=== PATIENT | female | born 1930 | race Caucasian/White ===

== ENCOUNTER → 2016-05-22 | Outpatient (CLI) | payer OTHER, BC ==
[~2016-05-22] MED LIST: ASPI81TA28 PO; CALC-20 PO; CIPR-255 PO; CYAN3INJ IM; DILT-113 PO; LEVO50TA6 PO; LPT40 PO; MAGN400T6 PO; MULT-190 PO; PRLSR20 PO; PYRI100T4 PO; SPIR25TA PO; VENL1CAP92 PO; VENL75CA PO
[2016-05-22 10:04] LABS: ALKALINE PHOSPHATASE 122 U/L (45-117); ALT/SGPT 28 U/L (12-78); AST/SGOT 18 U/L (15-37); BLOOD UREA NITROGEN 19 mg/dl (7-18); BUN/CREATININE RATIO 18.9 (10-20); CALCIUM 9.5 mg/dl (8.5-10.1); CARBON DIOXIDE 28 mmol/L (21-32); CHLORIDE 108 mmol/L (98-107); CHOLESTEROL 118 mg/dl (0-200); GLUCOSE 97 mg/dl (70-99); POTASSIUM 4.5 mmol/L (3.5-5.1); SODIUM 144 mmol/L (136-145); TRIGLYCERIDES 98 mg/dl (0-150); VERY LOW DENSITY LIPOPROT CALC 20 mg/dl
[2016-05-22 10:06] LABS: ALB/GLOB RATIO 1.2 (0.9-2); CHOLESTEROL/HDL RATIO 2.1; HDL CHOLESTEROL 55 mg/dl; LDL CHOLESTEROL CALCULATED 43 mg/dl
== END | disposition home or self-care (01) ==
LOC: C.LABFOXMH 09:18
PROVIDERS: ATTEND Internal Medicine
DX: E78.4 Other hyperlipidemia (principal)

== ENCOUNTER → 2016-06-19 | Outpatient (CLI) | payer OTHER, BC ==
[~2016-06-19] MED LIST changes: +AMLO-110 PO; +ASPEC81 PO; +CLOP1TAB15 PO; +ISR/30 PO; +METO50TA7 PO; +NTRGSL/4 UT; +OMEG10007 PO
[2016-06-19 09:36] LABS: HEMATOCRIT 43.6 % (37-47); MEAN CELL VOLUME 89.2 fL (80-100); MEAN CORPUSCULAR HEMOGLOBIN 30.5 pg (25-34); MEAN CORPUSCULAR HGB CONC 34.2 g/dl (32-36); MEAN PLATELET VOLUME 11.3 fL (7.4-10.4); PLATELET COUNT 229 K/uL (130-400); RED BLOOD COUNT 4.89 M/uL (4.2-5.4); WHITE BLOOD COUNT 9.88 K/uL (4.8-10.8)
[2016-06-19 12:01] LABS: LYME DISEASE AB IGG NEG (NEG); LYME DISEASE AB IGM NEG (NEG)
== END | disposition home or self-care (01) ==
LOC: C.LAB 07:09
PROVIDERS: ATTEND Internal Medicine
DX: R53.83 Other fatigue (principal)

== ENCOUNTER → 2016-10-12 | Outpatient (CLI) | payer OTHER, BC ==
[~2016-10-12] MED LIST changes: -AMLO-110 PO; -ASPEC81 PO; -CLOP1TAB15 PO; -ISR/30 PO; -METO50TA7 PO; -NTRGSL/4 UT; -OMEG10007 PO
--- NOTE | 2016-10-12 12:02 | DIAGNOSTIC IMAGING REPORT ---
CERVICAL SPINE 5 VIEWS HISTORY: Neck PAIN COMPARISON: None. FINDINGS: The cervical spine is visualized from C1 through the superior endplate of T1. No acute fracture. 3 mm of anterolisthesis of C4 on C5 and 2 mm of anterolisthesis of C7 on T1. Moderate to severe disc space narrowing with large anterior osteophytes at C5-C6 and C6-C7. 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 Severe bilateral neural foraminal narrowing at C4-C5 and moderate right and mild left no foraminal narrowing at C5-C6. There is also moderate right neural foraminal narrowing at C3-C4. Prevertebral soft tissues and the atlantodens interval are intact. IMPRESSION: 1. No acute fractures within the cervical spine. 2. Anterolisthesis of C4 on C5 and C7 on T1 as described above. 3. Multilevel cervical spondylosis as described above. Electronically signed by: Gilles Andre M.D. 10/12/2016 12:01 PM Dictated Date/Time: 10/12/2016 11:57 AM
--- NOTE | 2016-10-12 13:50 | EXERCISE STRESS ECHO ---
*NOTICE TO RECEIVING REPUBLICAN AGENCY This information is strictly Confidential and protected under [place] law. [place] law prohibits you from making any further disclosure of this information unless further disclosure is expressly permitted by the written consent of the person to whom it pertains or is authorized by law. A general authorization for the release of medical or other information is not sufficient for this purpose. Hospital accepts no responsibility if the information is made available to any other person, INCLUDING THE PATIENT. Interpretation Summary * Name: LUIS GALLOWAY Study Date: 10/12/2016 11:26 AM BP: 139/76 mmHg * Patient Location: [facility] HR: 61 * : 1930 (M/d/yyyy) Gender: Female Height: 59 in * Age: 86 yrs Ethnicity: [place] Weight: 130 lb * Ordering Physician: Igor Bardales * Referring Physician: Igor Bardales * Performed By: Lela Godinez RCS * * Reason For Study: CHEST PAIN * BSA: 1.5 m2 * -- Conclusions -- * There is mild concentric left ventricular hypertrophy. * Left ventricular systolic function is normal. * Grade I diastolic dysfunction, (abnormal relaxation pattern). * Right ventricular systolic pressure is normal. * Compared to an echocardiogram from 09/22/2015, there is no change * Diagnostic exercise echocardiogram with echo images suggesting a very small area of inducible apical ischemia. Procedure Details * ECHOEX, CPT #[id number] * ECHO COLOR FLOW, CPT #[id number] * ECHO DOPPLER, CPT #[id number] Left Ventricular Findings with Stress * Diagnostic exercise echocardiogram with echo images suggesting a very small area of inducible apical ischemia. Left Ventricle * The left ventricle is normal in size. * There is mild concentric left ventricular hypertrophy. * Left ventricular systolic function is normal. * Ejection Fraction = 60-65%. * Grade I diastolic dysfunction, (abnormal relaxation pattern). * The left ventricular wall motion is normal at rest. Right Ventricle * The right ventricle is normal in size and function. Atria * The left atrial size is normal. * Right atrial size is normal. Mitral Valve * The mitral valve anatomy is normal. * There is no mitral regurgitation noted. Tricuspid Valve * The tricuspid valve is not well visualized, but is grossly normal. * There is trace tricuspid regurgitation. * Right ventricular systolic pressure is normal. Aortic Valve * The aortic valve is normal in structure and function. * No hemodynamically significant valvular aortic stenosis. * There is no significant aortic regurgitation. Great Vessels * The aortic root is normal size. Pericardium * There is no pericardial effusion. Stress Parameters * Normal baseline electrocardiogram. * The stress portion of this study was personally supervised by the undersigned interpreting physician. * Rest heart rate was '61' BPM. * Rest blood pressure was '139/76' * Maximum heart rate achieved was 155 bpm. * Maximum heart rate was 113 % of maximum age-predicted heart rate. * Maximum blood pressure was '189/92' * Total exercise time was '06:00' * Maximum exercise MET level achieved was '7.00' METS * Maximum treadmill speed was '2.50' miles per hour. * Maximum treadmill elevation was '12.00'% grade. Left Ventricular Findings with Stress * Baseline EKG was normal The specificity of the x-rays EKG was limited by significant artifact, but there were no definite ischemic changes. Baseline echocardiogram was normal With exercise there was normal augmentation of all segments with the exception of a very small apical anterior segment in one view. No symptoms reported during the test Jane treadmill score 6 (low risk) Normal heart rate and blood pressure response to exercise MMode 2D Measurements and Calculations IVSd 1.3 cm IVSs 1.3 cm LVIDd 3.0 cm LVIDs 2.0 cm LVPWd 1.0 cm LVPWs 1.3 cm IVS/LVPW 1.3 FS 33.2 % EDV(Teich) 33.8 ml ESV(Teich) 12.4 ml EF(Teich) 63.5 % EDV(cubed) 25.9 ml ESV(cubed) 7.7 ml EF(cubed) 70.2 % % IVS thick -5.19 % % LVPW thick 25.9 % LV mass(C)d 102.3 grams LV mass(C)dI 66.6 grams/m\S\2 LV mass(C)s 70.1 grams LV mass(C)sI 45.6 grams/m\S\2 SV(Teich) 21.5 ml SI(Teich) 14.0 ml/m\S\2 SV(cubed) 18.2 ml SI(cubed) 11.8 ml/m\S\2 Ao root diam 2.6 cm Ao root area 5.5 cm\S\2 LA dimension 2.8 cm LA/Ao 1.0 LVOT diam 1.9 cm LVOT area 3.0 cm\S\2 Doppler Measurements and Calculations MV E max mayela 65.8 cm/sec MV A max mayela 99.8 cm/sec MV E/A 0.66 MV P1/2t max mayela 60.4 cm/sec MV P1/2t 109.9 msec MVA(P1/2t) 2.0 cm\S\2 MV dec slope 161.0 cm/sec\S\2 MV dec time 0.31 sec Ao V2 max 108.6 cm/sec Ao max PG 4.7 mmHg Ao max PG (full) 1.6 mmHg KELLEY(V,A) 2.4 cm\S\2 KELLEY(V,D) 2.4 cm\S\2 LV V1 max PG 3.2 mmHg LV V1 max 89.0 cm/sec MR max mayela 240.4 cm/sec MR max PG 23.1 mmHg PA V2 max 80.0 cm/sec PA max PG 2.6 mmHg PI max mayela 144.8 cm/sec PI max PG 8.4 mmHg PI dec slope 114.0 cm/sec\S\2 PI P1/2t 372.1 msec TR max mayela 223.6 cm/sec
--- NOTE | 2016-10-18 07:35 | CODING QUERY MEDICAL NECESSITY ---
SUPPORTING DIAGNOSIS NEEDED A supporting diagnosis is required for the test/procedure performed on this patient in order for us to be reimbursed by the patient's insurance. Please provide a supporting diagnosis for the following test/procedure listed below next to the test name along with your signature. *If there is no additional diagnosis for this patient that would support the following test/procedure please document that below next to the test/procedure. Test(s)/Procedure(s) that require a supporting diagnosis: * ECHO DOPPLER COMPLETE DIAGNOSIS: * ECHO COLOR FLOW DIAGNOSIS: Provider Signature: Date: Thank you Susy [place] [employer] Once completed, please kindly fax back to [phone] For questions please call [phone]
== END | disposition home or self-care (01) ==
LOC: C.CPL 10:59
PROVIDERS: ATTEND Internal Medicine
DX: R07.9 Chest pain, unspecified (principal); M53.82 Other specified dorsopathies, cervical region

== ENCOUNTER → 2016-12-26 | Outpatient (CLI) | payer OTHER, BC ==
[2016-12-26 13:24] LABS: BASO % 0.4 %; BASO ABS # 0.04 K/uL (0-0.2); COMPLETE YES; EOS % 2.2 %; IG% 0.2 %; LYMPH % 18.4 %; MEAN CORPUSCULAR HEMOGLOBIN 30.1 pg (25-34); MEAN CORPUSCULAR HGB CONC 33.5 g/dl (32-36); MEAN PLATELET VOLUME 10.9 fL (7.4-10.4); MONO % 7.2 %; NEUT % 71.6 %; PLATELET COUNT 208 K/uL (130-400); RED BLOOD COUNT 4.78 M/uL (4.2-5.4); WHITE BLOOD COUNT 9.23 K/uL (4.8-10.8)
[2016-12-26 13:34] LABS: PROTHROMBIN TIME (PATIENT) 10.9 SECONDS (9.0-12.0)
[2016-12-26 14:48] LABS: BLOOD UREA NITROGEN 18 mg/dl (7-18); CREATININE 0.84 mg/dl (0.60-1.20); GLUCOSE 83 mg/dl (70-99)
[2016-12-26 14:49] LABS: BUN/CREATININE RATIO 21.3 (10-20); CALCIUM 9.3 mg/dl (8.5-10.1); CARBON DIOXIDE 28 mmol/L (21-32); CHLORIDE 108 mmol/L (98-107); POTASSIUM 3.7 mmol/L (3.5-5.1); SODIUM 142 mmol/L (136-145)
== END | disposition home or self-care (01) ==
LOC: C.LAB1850 10:35
PROVIDERS: ATTEND Physician Assistant Medical
DX: R94.39 Abnormal result of other cardiovascular function study (principal)

== ENCOUNTER 2016-12-29 06:50 | Observation (INO) | payer OTHER, BC ==
[2016-12-29] VITALS (20 sets, daily range): BP systolic 107–169; BP diastolic 65–110; PULSE 56–77; TEMP 36.3–36.6; O2SAT 91–97; Ht 149.9 cm; Wt 60.0 kg
[~2016-12-29] VITALS: Ht 149.9 cm; Wt 60.0 kg
[2016-12-29] MEDS ORDERED: HEPARIN SOD (PORCINE) 1000 UNIT/ML 10 ML VIAL ONE ×2 (07:32→13:23)
[2016-12-29] MEDS ORDERED: NTRGSL/4 UT (07:32)
[2016-12-29] MEDS ORDERED: CLOP1TAB15 PO (07:32)
[2016-12-29] MEDS ORDERED: MIDAZOLAM HCL 1 MG/ML 2ML VIAL ONE ×2 (07:32→13:24)
[2016-12-29] MEDS ORDERED: AMLO-110 PO (07:32)
[2016-12-29] MEDS ORDERED: METO50TA7 PO (07:32)
[2016-12-29] MEDS ORDERED: FENTANYL CITRATE INJ 50 MCG/1 ML 2 ML VIAL ONE ×2 (07:32→13:23)
[2016-12-29] MEDS ORDERED: NiCARDipine HCL INJ 2.5 MG/ML 10 ML AMP ONE ×2 (07:32→13:23)
[2016-12-29] MEDS ORDERED: NITROGLYCERIN/D5W 100MCG/ML 20ML SYR ONE (07:33)
--- NOTE | 2016-12-29 08:19 | History & Physical Bridge Note ---
H&P Re-Evaluation Bridge Note: I have examined the patient, reviewed the History & Physical and in the interval since the performance of the History & Physical I have noted the following changes of clinical significance: No changes noted
--- NOTE | 2016-12-29 08:22 | Procedure Note ---
Pre-Mod Sedation Assessment General Date of Moderate Sedation: Dec 29, 2016. Vital Signs: Vital Signs Past 12 Hours Date Time Temp Pulse Resp B/P (MAP) Pulse Ox O2 Delivery O2 Flow Rate FiO2 12/29/16 07:16 36.6 63 16 167/67 96 Room Air Review Cardiovascular: regular rate, rhythm, no edema Abdomen: normal bowel sounds, non tender Lungs: chest non-tender, lungs clear Airway Class: III Pre-Sedation Airway Assessment Oral Cavity: WNL Able to Visualize Vocal Cords: No Short Thick Neck: No Hx of Sleep Apnea: No Smoking Status: Never Smoker Mallampati Classification: Class III ASA Classification: Class III Procedure Planning Contraindications-for Mod Sed: None Yes Notes The planned sedation has been discussed with the patient and consent obtained. I have identified the patient, determined the appropriateness of sedation and have assessed the patient immediately prior to the procedure. All medicine(s) and interventions are by my order.
[2016-12-29] MEDS ORDERED: PROTAMINE SULFATE 10 MG/ML 5 ML VIAL IV ONE (09:16)
--- NOTE | 2016-12-29 09:59 | Procedure Note ---
Post-Mod Sedation Assessment General Date of Moderate Sedation Dec 29, 2016. Vital Signs: Vital Signs Past 12 Hours Date Time Temp Pulse Resp B/P (MAP) Pulse Ox O2 Delivery O2 Flow Rate FiO2 12/29/16 07:16 36.6 63 16 167/67 96 Room Air Review - Discharge Criteria Vital Signs Stable: Yes Alert/Oriented/Conversant: Yes Returned to Baseline Mental St: Yes Nausea Absent/Minimal: Yes Pain/Discomfort/Absent/Minimal: Yes Normal/Baseline Respirations: Yes Active Bleeding?: No Pt Received D/C Instructions: Yes Prescriptions Given: None Specific Proced. D/C Criteria Distal Pulses Present (Cardiac: Yes Groin site assessed-Card Cath: N/A Voided Prior To Discharge: N/A Discharged Patients Adult Escort/Transportation: Yes
[2016-12-29] MEDS ORDERED: SODIUM CHLORIDE 0.9% 1000ML 1,000 ML IV SCH (15:15)
[2016-12-29] MEDS ORDERED: ACETAMINOPHEN 325 MG TAB PO PRN (15:15)
[2016-12-29] MEDS ORDERED: NITROGLYCERIN 0.4 MG SL PER TAB CHARGE UT SCH (15:15)
[2016-12-29] MEDS ORDERED: NITROGLYCERIN 0.4 MG SL PER TAB CHARGE SL PRN (15:15)
[2016-12-29] MEDS ORDERED: CLOPIDOGREL BISULFATE 300 MG TAB PO ONE (15:16)
[2016-12-29] MEDS ORDERED: ASPIRIN 81 MG CHEW ONE (15:19)
--- NOTE | 2016-12-29 15:20 | Procedure Note ---
Post-Mod Sedation Assessment General Date of Moderate Sedation Dec 29, 2016. Vital Signs: Vital Signs Past 12 Hours Date Time Temp Pulse Resp B/P (MAP) Pulse Ox O2 Delivery O2 Flow Rate FiO2 12/29/16 15:17 Room Air 12/29/16 15:12 Room Air 12/29/16 15:07 57 16 152/77 (102) 96 Room Air 12/29/16 13:30 63 16 130/68 (88) 95 Room Air 12/29/16 12:30 63 16 122/68 (86) 95 Room Air 12/29/16 12:00 63 16 135/68 (90) 95 Room Air 12/29/16 11:30 65 16 133/71 (91) 95 Room Air 12/29/16 11:00 59 16 107/71 (83) 95 Room Air 12/29/16 10:45 61 16 107/71 (83) 95 Room Air 12/29/16 10:30 65 16 126/68 (87) 95 Room Air 12/29/16 10:15 64 16 120/68 (85) 95 Room Air 12/29/16 10:00 65 16 125/68 (87) 95 Room Air 12/29/16 09:45 68 16 122/68 (86) 95 Room Air 12/29/16 09:40 Room Air 12/29/16 09:35 Room Air 12/29/16 09:30 60 16 130/70 (90) 96 Room Air 12/29/16 07:16 36.6 63 16 167/67 96 Room Air Review - Discharge Criteria Vital Signs Stable: Yes Alert/Oriented/Conversant: Yes Returned to Baseline Mental St: Yes Nausea Absent/Minimal: Yes Pain/Discomfort/Absent/Minimal: Yes Normal/Baseline Respirations: Yes Active Bleeding?: No Pt Received D/C Instructions: Yes Prescriptions Given: None Specific Proced. D/C Criteria Distal Pulses Present (Cardiac: Yes Groin site assessed-Card Cath: N/A Voided Prior To Discharge: N/A Discharged Patients Adult Escort/Transportation: Yes
--- NOTE | 2016-12-29 15:35 | Cardiac Catheterization ---
Procedure Note Procedure Date Dec 29, 2016. Pre-Procedure Diagnosis Positive Stress Test AUC Score 7 Post-Procedure Diagnosis Severe CAD Procedure(s) Performed Coronary Angiography, Left Heart Cath, Radial Artery Angiography, procedure ( Radial artery balloon internal tamponade) Education Nurse [employer] Educator(s) Stephanie Estimated Blood Loss 15 Medication(s) Fentanyl, Heparin, Nicardipine, Nitroglycerin, Versed, Lidocaine 1% Protamine Summary of Findings Indication: Positive stress test Access: 6Fr slender right radial artery Catheters: [place]; EBU 3.5 guide Findings: LM - Short, almost separate ostium, luminal irregularities. LAD - Proximal to mid moderate calcification; diffuse mild proximal disease, diffuse moderate mid segment disease with focal 95% stenosis at take-off of moderate caliber 2nd diagonal. Luminal irregularities distally as wraps around apex. 2nd diagonal with 50% ostial stenosis. Circumflex - Large caliber vessel, luminal irregularities. RCA - Dominant, luminal irregularities. LVEDP - 12 -- Attempted PCI -- - Decision made to intervene on proximal to mid LAD. - Small radial artery with moderate disease at the level of the elbow -- unable to pass 6Fr guide. - Attempted balloon assisted tracking with 1.5 balloon but catheter still would not pass. - Angiography post attempts at guide passage showed perforation at the level of the elbow. - Internal balloon tamponade performed with 2.5 x 120 balloon for 8 minutes. - Anticoagulation reversed with protamine. - Post SYSTEMS PROGRAM MANAGER angiography showed no significant residual perforation. - Decision made to abort procedure and attempted scheduled PCI of LAD via right femoral artery. Arterial Closure: TR Band Summary: 1. Severe single vessel coronary artery disease - Diffuse calcified proximal to mid disease with 95% stenosis in mid segment at take-off of 2nd diagonal 2. Normal intracardiac filling pressure 3. Right radial artery perforation after unsuccessful attempts to pass 6Fr guide. 4. Successful internal balloon tamponade of right radial artery. Recommendations: Plan for PCI of proximal to mid LAD next week via right femoral artery Continued ASCVD risk factor modification. Continue current plavix, add Aspirin Hemodynamics Rest Ao: 145/73/103 Final Ao: 126/58/87 LV: 132/12 Recommendations PCI without planned CABG Specimens None Radiation Exposure (mGy) 677 Contrast (mls) 50 Fluids (cc crystalloids) 135 Drains None Anesthesia Moderate Procedural Complication(s) None Disposition Service Order Clerk Holding/Recovery ACC Data Cardiac Status Clinical evaluation leading to the procedure CAD Presntation: Stable angina, Positive Stress Test Anginal Classification: CCS III Heart Failure: No, NYHA Class: CCS I Cardiogenic Shock w/in 24Hrs: No Imaging studies past 6 months: No Stress studies past 6 months: Yes Standard Exercise Stress Test: No Stress Echocardiogram: Yes - Positive, Risk/Extent of Ischemia (High) Stress Testing w/SPECT MPI: No Cardiac CTA: No Closure Device Percutaneous Entry Location: Radial Closure Device: Radial Band Recommendations: PCI without planned CABG PCI Indication: + Stress Test Intraprocedure Events Significant Dissection: No Perforation: Yes (Treated with internal balloon tamponade)
--- NOTE | 2016-12-29 15:47 | Cardiac Catheterization ---
Procedure Note Procedure Date Dec 29, 2016. Pre-Procedure Diagnosis Positive Stress Test AUC Score 8 Post-Procedure Diagnosis Severe CAD Procedure(s) Performed Drug Eluting Stent, Femoral Artery Angiography Gang Ripsaw Operator [employer] Instructor(s) Oliver Estimated Blood Loss 20 Medication(s) Aspirin, Clopidogrel, Fentanyl, Heparin, Nicardipine, Nitroglycerin, Versed, Lidocaine 1% Protamine Summary of Findings Indication: Coronary angiography performed earlier today and revealed severe mid LAD disease. Attempted to perform PCI via right radial artery but vessel small and unable to pass guide catheter through vessel with resulting perforation treated with internal balloon tamponade. Plan had been to perform PCI next week via right SNACK BAR ATTENDANT. Post procedure in recovery developed 4/10 substernal chest pain with nausea while at rest. ECG unchanged. Pain relieved with one SL NTG. In the setting of new rest pain decision made perform PCI today. Access: Ultrasound guided access - 6Fr right SNACK BAR ATTENDANT Catheters: EBU 3.5 guide -- PCI -- Antithrombotic therapy: Heparin Procedure: LM cannulated with EBU 3.5 guide Prowater wire passed across lesion into 2nd diagonal Whisper wire passed across lesion into distal LAD Mid LAD lesion predilated with 2.5 compliant balloon Dilated lesion stented with 3.0 x 38 Yair SHAHANA 2nd diagonal re-wired with Choice PT wire Ostium of diagonal/LAD stent struts dilated with 2.0 balloon. Stent post-dilated with 3.0 noncompliant balloon IC vasodilators administered for spasm 30% residual stenosis in diagonal ostium. ALVARADO 3 flow. Post procedure ALVARADO 3 flow, stent well expanded with minimal residual stenosis and no apparent cardiac complications. Arterial Closure: AngioSeal Summary: 1. Successful PCI of proximal to mid LAD with 3.0 x 38 Xience SHAHANA Recommendations: To PCU for continued monitoring Reloaded with 300mg clopidogrel, 324 Aspirin Continue dual-antiplatelet therapy for at least1 year Continue statin, ASCVD risk factor modification Consult cardiac Rehab Hemodynamics Rest Ao: 137/60/90 Final Ao: 148/59/97 LV: -- Recommendations PCI without planned CABG Specimens None Radiation Exposure (mGy) 2452 Contrast (mls) 175 Visi Fluids (cc crystalloids) 152 NSS Drains None Anesthesia Moderate Procedural Complication(s) None Disposition PCU ACC Data Cardiac Status Clinical evaluation leading to the procedure CAD Presntation: Positive Stress Test Anginal Classification: CCS IV Heart Failure: No, NYHA Class: CCS I Imaging studies past 6 months: Yes Stress Echocardiogram: Yes - Positive, Risk/Extent of Ischemia (High) Closure Device Percutaneous Entry Location: Femoral Closure Device: Angio-Seal Recommendations: PCI without planned CABG PCI Indication: + Stress Test Lesion Segment Name: mid LAD Culprit Artery: Yes Stenosis Prior to Rx (%): 95% Chronic Total Occlusion: No IVUS: No FFR: No Pre-Procedure ALVARADO Flow: 3 Previously Treated Lesion: No Lesion Complexity: High/C Lesion Length (mm): 30 Thrombus Present: No Bifurcation Lesion: Yes Guidewire Across Lesion: Yes Guidewire: Stenosis Post-Procedure (%): 0 Post-Procedure ALVARADO Flow: 3 Device(s) Deployed: Yes Intraprocedure Events Significant Dissection: No Perforation: No
[2016-12-29] MEDS ORDERED: IV FLUIDS COMPLETED PRN (16:00)
[2016-12-29] MEDS ORDERED: ASPEC81 PO (16:49)
[2016-12-29] MEDS ORDERED: NURSING VERBAL MED ORDER ONE (17:30)
[2016-12-30 00:04] VITALS: BP 93/70; PULSE 67; TEMP 36.8; O2SAT 94
[2016-12-30 03:44] VITALS: BP 121/69; PULSE 65; TEMP 36.7; O2SAT 96
[2016-12-30] MEDS ORDERED: LEVOTHYROXINE 50 MCG TAB PO SCH (06:00)
[2016-12-30 06:12] LABS: BASO % 0.3 %; BASO ABS # 0.03 K/uL (0-0.2); COMPLETE YES; EOS % 1.4 %; HEMATOCRIT 34.3 % (37-47); IG% 0.3 %; LYMPH % 11.9 %; LYMPH ABS # 1.09 K/uL (1.2-3.4); MEAN CELL VOLUME 88.4 fL (80-100); MEAN CORPUSCULAR HEMOGLOBIN 29.4 pg (25-34); MEAN CORPUSCULAR HGB CONC 33.2 g/dl (32-36); MONO % 7.3 %; NEUT % 78.8 %; PLATELET COUNT 166 K/uL (130-400); RED BLOOD COUNT 3.88 M/uL (4.2-5.4); WHITE BLOOD COUNT 9.17 K/uL (4.8-10.8)
[2016-12-30 06:44] LABS: CALCIUM 8.3 mg/dl (8.5-10.1); CREATININE 0.89 mg/dl (0.60-1.20); POTASSIUM 3.5 mmol/L (3.5-5.1)
[2016-12-30 07:55] VITALS: BP 115/57; PULSE 71; TEMP 36.4; O2SAT 96
[2016-12-30 08:00] VITALS: O2SAT 93
[2016-12-30] MEDS ORDERED: ASPIRIN 81 MG ECTAB PO SCH (09:00)
[2016-12-30] MEDS ORDERED: CEROVITE ADV FORMULA TAB PO SCH (09:00)
[2016-12-30] MEDS ORDERED: PANTOprazole SOD 40 MG TAB PO SCH (09:00)
[2016-12-30] MEDS ORDERED: MAGNESIUM OXIDE 400 MG TAB PO SCH (09:00)
[2016-12-30] MEDS ORDERED: VENLAFAXINE HCL XR 75 MG CAPXR PO SCH (09:00)
[2016-12-30] MEDS ORDERED: METOPROLOL SUCC 50MG EXT REL TAB PO SCH (09:00)
[2016-12-30] MEDS ORDERED: AMLODIPINE BESYLATE 5 MG TAB PO SCH (09:00)
[2016-12-30] MEDS ORDERED: VENLAFAXINE HCL XR 37.5 MG CAPXR PO SCH (09:00)
[2016-12-30] MEDS ORDERED: CLOPIDOGREL BISULFATE 75 MG TAB PO SCH (09:00)
[2016-12-30] MEDS ORDERED: ATORVASTATIN 40 MG TAB PO SCH (09:00)
[2016-12-30] MEDS ORDERED: PYRIDOXINE HCL 50 MG TAB PO SCH (09:00)
--- NOTE | 2016-12-30 09:20 | Discharge Instructions ---
Discharge Instructions Procedure Procedure Date: Dec 29, 2016. Reason for Visit: Abnormal Stress Test Dr Ahmadi To Do. Discharge Discharge Date: Dec 29, 2016. Discharge Diagnosis: Coronary artery disease post stenting Last Recorded Wt (Kilograms): 60 Anesthesia Post Anesthesia Instructions: Call Dr. Ahmadi if 1. Temperature elevations greater than 101 degrees F. 2. Uncontrollable pain. 3. Excessive bleeding. 4. Persistent nausea and vomiting. 5. Medication intolerance (nausea, vomiting or rash). * For nausea and vomiting use only clear liquids such as: tea, soda, bouillon until nausea subsides, then gradually increase diet as tolerated. * If you have any concerns or questions, call your surgeon's office. If physician is unavailable and it is an emergency, call 911 or go to the nearest emergency room. Instructions Activity Recommendations: limitations as noted below Recommended Home Diet: resume previous diet Allergies: Coded Allergies: No Known Allergies (Verified , 09/21/15) Follow Up Additional Instructions: ACTIVITY RECOMMENDATIONS: It is common to feel weak and fatigue for a few days. * Do not drive or operate any motorized equipment for the next three days. * Limit stair usage (2 or 3 trips a day only) for the next three days. * Do not lift anything heavier than 10 pounds for the next three days. * Do not engage in vigorous exercise or any sports for the next five days. * You may shower the day after your procedure, but do not immerse the area for three days. Cleanse the site gently with soap and water. SPECIAL CARE INSTRUCTIONS: * You may replace the pressure dressing or band-aid the morning after the procedure. * After your procedure, it is normal to have a small bruise or small lump at the site. Examine your site daily for any change in the bruise or lump, redness, swelling, drainage or numbness. Notify your doctor if any change. BLEEDING: * If there is a small amount of bleeding at the site, lie down and apply firm pressure with a clean cloth for ten minutes. When the bleeding stops, lie quietly keeping the procedure limb straight for six hours. Notify your doctor as soon as possible. * If the bleeding does not stop after ten minutes or if there is a large amount of bleeding or spurting, call 911 immediately. Continue to lie down and hold firm pressure until help arrives. SKIN IRRITATION: * You may experience some redness and/or swelling in the area where radiation was administered. If any skin irritation occurs, please contact your family physician. FOLLOW UP VISIT: Keep any scheduled doctor appointments. Follow-up with: Follow-up with Nain Calvert next week [place] Recommendations: Call your doctor if: * Temperature above 101 degrees * Pain not relieved by pain medicine ordered * There is increased drainage or redness from any incision * You have any unanswered questions or concerns. Your Doctors Instructions noted above were prepared by provider Chetan Ahmadi. Patient Signature Section: Patient Instructions Signature Page Rosana Liz Patient (or Guardian) Signature/Date: I have read and understand the instructions given to me by my caregivers. Caregiver/RN/Doctor Signature/Date: The above-named patient and/or guardian has received patient instructions on this date. + Original Patient Signature Page (only) stays with chart. Please make copy for patient.
[2016-12-30 09:21] VITALS: BP 115/57; PULSE 71; TEMP 36.4; O2SAT 93
--- NOTE | 2016-12-30 09:40 | CARDIOLOGY PROGRESS NOTE ---
DATE: 12/30/2016 SUBJECTIVE: Mrs. Liz is resting comfortably in the bedside chair without complaints of chest pain, arm pain, or dyspnea. She is anxious for hospital discharge. OBJECTIVE: VITAL SIGNS: Blood pressure 115/57 with a regular pulse of 71. Respiratory rate is 18 and the patient is afebrile at 36.4 degrees Celsius. Saturation is 93% on room air. NECK: Supple with full carotid upstrokes. There are no carotid bruits. Jugular venous pressure is flat at 90 degrees. There is no thyromegaly. CARDIOVASCULAR: Reveals a regular rhythm with a normal S1 and S2. No S3, S4, or murmurs are noted. LUNGS: Clear without rales, rhonchi, or wheezes. ABDOMEN: Soft, nontender without bruits. EXTREMITIES: Note intact radial artery pulses bilaterally. A small ecchymosis noted in the right antecubital fossa. The femoral pulses are intact bilaterally. No bruit across the right femoral artery. No hematoma in the right groin. LABORATORY DATA: CBC notes hemoglobin 11.4, hematocrit 34.3, white count 9.1, platelet count 166,000. Electrolytes note a sodium of 145, potassium 3.5, chloride 112, bicarb 26, BUN 17, creatinine 0.89, glucose 94. shelter monitor is benign. IMPRESSION AND PLAN: 1. Status post left anterior descending drug-eluting stent -- performed by Dr. Ahmadi yesterday. He did have difficulty with a right radial artery access, and therefore, procedure performed via the right common femoral artery. Stable for hospital discharge. 2. Hypertension -- controlled. 3. Hypercholesterolemia -- continue statin. 4. Disposition -- stable for hospital discharge. Follow scheduled with Mr. Terrelleler for next week.
--- NOTE | 2017-01-02 20:10 | DISCHARGE SUMMARY ---
PROCEDURES: 1. Coronary angiography. 2. Successful internal balloon tamponade to right radial artery perforation. 3. Successful PCI of proximal to mid LAD with 1 drug-eluting stent. HISTORY OF PRESENT ILLNESS: Mrs. Liz is a very pleasant 86-year-old woman with a history of hypertension, dyslipidemia, prior CVA in September 2015, who presented for cardiac catheterization in the setting of chest pain, decreased exercise tolerance and an abnormal stress test. The patient had endorsed chest pain over the last several weeks to months. She had undergone a stress test which had suggested possible LAD distribution ischemia with exercise-induced apical hypokinesis. HOSPITAL COURSE: The patient underwent diagnostic coronary angiography via right radial artery. She was noted to have a 95% mid LAD stenosis at the take off of a moderate caliber second diagonal. She had only mild to moderate disease in the remainder of her coronary arteries. Decision was made to proceed with attempted PCI; however, was unable to pass a 6-Italian guide through the right radial artery, due to some stenosis at the level of the elbow. With continued attempts, there was evidence of perforation on diagnostic arteriography. Decision was made to place a balloon for internal tamponade. The balloon was left deflated at the site of perforation for approximately 8 minutes. Post-procedure in reversal of anticoagulation, there was no evidence of ongoing perforation. Decision was made to complete procedure and bring back patient for scheduled PCI of LAD. She was watched in the cardiac cath rn holding area when she developed acute onset of chest pain. This was relieved with 1 sublingual nitroglycerin and EKG was largely unchanged. As the patient was having typical anginal symptoms at rest, decision was made to complete PCI on same day via femoral approach. The patient ended up having 1 drug-eluting stent 3.0 x 38 Xience placed from her proximal to mid LAD with good angiographic result. She was reloaded with Plavix and started on aspirin before being admitted overnight for further observation. Overnight, she had no additional chest pain. Her telemetry was unremarkable. She had no significant apparent access site complications at her right femoral or right radial arm access sites. She was discharged to home on hospital day #2. She will follow up with Dr. Nain Calvert in the upcoming week, continue with dual antiplatelet therapy for the next year. DISCHARGE MEDICATIONS: 1. Aspirin 81. 2. Amlodipine 5. 3. Atorvastatin 40 mg daily. 4. Calcium carbonate-vitamin D 600 mg 1 tab p.o. b.i.d. 5. Plavix 75 mg daily. 6. Vitamin B12 one injection monthly. 7. Levothyroxine 50 mcg p.o. daily. 8. Magnesium oxide 400 mg daily. 9. Metoprolol succinate 50 mg daily. 10. Sublingual nitroglycerin tabs 0.4 p.r.n. 11. Ocuvite 1 tab p.o. daily. 12. Omeprazole 20 mg p.o. daily. 13. Vitamin B6 100 mg daily. 14. Venlafaxine 75 mg daily. FOLLOWUP: Will follow up with Dr. Nain Calvert in cardiology clinic on 01/04/2017.
== END 2016-12-30 10:00 | disposition home or self-care (01) ==
LOC: C.CATH 06:50 → CANBEDREQ 09:38 → ENRESERV 14:39 → C.2E 15:46
PROVIDERS: ADMIT Internal Medicine Interventional Cardiology; ATTEND Internal Medicine Interventional Cardiology
DX: I25.10 Atherosclerotic heart disease of native coronary artery without angina pectoris (principal); R94.39 Abnormal result of other cardiovascular function study; R07.9 Chest pain, unspecified; I10 Essential (primary) hypertension; E78.5 Hyperlipidemia, unspecified; Z86.73 Personal history of transient ischemic attack (TIA), and cerebral infarction without residual deficits; Z90.89 Acquired absence of other organs; Z98.890 Other specified postprocedural states; Z90.49 Acquired absence of other specified parts of digestive tract; Z98.51 Tubal ligation status; Z82.49 Family history of ischemic heart disease and other diseases of the circulatory system; Z82.3 Family history of stroke; Z80.42 Family history of malignant neoplasm of prostate; Z82.69 Family history of other diseases of the musculoskeletal system and connective tissue; Z79.899 Other long term (current) drug therapy
CPT/HCPCS: 92920; 93458; C9600